=== PATIENT | female | born 1955 | race Native Hawaiian/Other Pacific Islander ===

== ENCOUNTER 2016-11-11 11:23 | Emergency (ER) | payer BC ==
[~2016-11-11] VITALS: Ht 165.1 cm; Wt 69.4 kg
[~2016-11-11 11:23] MED LIST: ASA LO-DOSE81 MG OR; CRESTOR20 MG PO; DIPY25TA PO; ESTR0.45 PO; GLIM4TAB PO; HYDR25TA60 PO; INDERAL LA80 MG OR; LISI20TA31 OR; METF500T PO; NEURONTIN600 MG PO; OMEP20CA PO
[2016-11-11 14:39] VITALS: BP 128/71; TEMP 97
== END 2016-11-11 14:49 | disposition home or self-care (01) ==
LOC: ED 11:23
DX: R21 Rash and other nonspecific skin eruption (principal); T78.40XA Allergy, unspecified, initial encounter
CPT/HCPCS: 96372; 99283; J1200; J2930